=== PATIENT | male | born 1990 | race Hispanic/Latino ===

== ENCOUNTER 2017-01-12 01:45 | Emergency (ER) | payer SELFPAY ==
[2017-01-12 01:57] VITALS: BP 150/89; PULSE 97; RESP 16; TEMP 98; O2SAT 98
--- NOTE | 2017-01-12 02:13 | ED PDOC ---
HPI: Psych/Substance Abuse Time Seen by Provider: 01/12/17 01:49 Chief Complaint (Nursing): Alcohol Ingestion Chief Complaint (Provider): ETOH History Per: Patient Additional Complaint(s): 26 yo male, no PMH, presents to ED BIB [facility] for evaluation of ETOH intoxication. Pt awake and alert, ambulating with steady gait at this time. Pt offers no complaints. Lives on [facility] in [place], asking to go home. Past Medical History Reviewed: Nursing Documentation, Vital Signs Vital Signs: Last Vital Signs Temp 98 F 01/12/17 01:55 Pulse 97 H 01/12/17 01:55 Resp 16 01/12/17 01:55 BP 150/89 01/12/17 01:55 Pulse Ox 98 01/12/17 01:55 - Medical History PMH: No Chronic Diseases - Surgical History Surgical History: No Surg Hx - Family History Family History: States: No Known Family Hx - Living Arrangements Living Arrangements: With Family - Social History Current smoker - smoking cessation education provided: No Alcohol: Social Drugs: Denies - Allergies Allergies/Adverse Reactions: Allergies Allergy/AdvReac Type Severity Reaction Status Date / Time amoxicillin Allergy RASH Verified 01/12/17 01:54 Review of Systems ROS Statement: Except As Marked, All Systems Reviewed And Found Negative Physical Exam - Reviewed Nursing Documentation Reviewed: Yes Vital Signs Reviewed: Yes - Physical Exam Appears: Positive for: Well, Non-toxic, No Acute Distress Head Exam: Positive for: ATRAUMATIC, NORMAL INSPECTION, NORMOCEPHALIC Skin: Positive for: Normal Color, Warm, DRY Eye Exam: Positive for: EOMI, Normal appearance, PERRL ENT: Positive for: Normal ENT Inspection Neck: Positive for: Normal, Painless ROM Cardiovascular/Chest: Positive for: Regular Rate, Rhythm Respiratory: Positive for: CNT, Normal Breath Sounds Gastrointestinal/Abdominal: Positive for: Normal Exam, Bowel Sounds, Soft Back: Positive for: Normal Inspection Extremity: Positive for: Normal ROM Neurologic/Psych: Positive for: Alert, Oriented - ECG O2 Sat by Pulse Oximetry: 98 Medical Decision Making Medical Decision Making: No medical intervention needed at this time Disposition - Clinical Impression Clinical Impression: Alcohol use - Patient ED Disposition Is Patient to be Admitted: No - Disposition Disposition: Routine/Home Disposition Time: 02:14 Condition: STABLE Instructions: Alcohol Intoxication (ED) Forms: Enval ([place])
== END 2017-01-12 02:10 | disposition home or self-care (01) ==
LOC: H.ER 01:45
DX: F10.10 Alcohol abuse, uncomplicated (principal)